=== PATIENT | female | born 1995 | race Caucasian/White ===

== ENCOUNTER 2020-01-01 16:25 | Emergency (ER) | payer OTHER, SELFPAY ==
--- NOTE | ~2020-01-01 | XR_ITS ---
XR ankle LT min 3V 01/01/2020 16:50 INDICATION: Left ankle pain PROCEDURE: 4 views left ankle COMPARISON: No prior studies for comparison. FINDINGS: Fracture, dislocation or subluxation is not identified. The soft tissues appear within norm al limits. No foreign bodies are identified. IMPRESSION: 1: NO ACUTE BONE OR JOINT ABNORMALITY IDENTIFIED. Reviewed, dictated and finalized at location A.
[2020-01-01 16:32] VITALS: BP 127/76; PULSE 91; RESP 18; TEMP 36.8; O2SAT 100
--- NOTE | 2020-01-01 16:39 | ED.GENADULT ---
HPI - General Adult General Chief complaint: Extremity Injury, Lower Stated complaint: left ankle pain/swelling Time Seen by Provider: 01/01/20 16:39 Source: patient and RN notes reviewed Mode of arrival: ambulatory Limitations: no limitations History of Present Illness HPI narrative: 24-year-old female presents with complains of tenderness and swelling to the left lateral ankle for the past 4-5 days. Tylenol (last at approximately at 13:30), Ibuprofen (last at approximately at 14:30), tomeka wrap, ice, and elevation with little relief. Injured ankle walking on uneven pavement. Swelling and pain increased over the past 24 hours. No radiating pain. No numbness or tingling or loss of mobility. Denies inability to bear weight. Exacerbation factor consist of movement and bearing weight. The relieving factor is immobility. Denies discoloration. Denies altered sensation, back pain, neck pain, and suspected foreign body. Denies being , LMP started on 12/27/19 and continues at this time. The patient reports she have not been diagnosed with COVID-19. The patient reports she is not waiting for the results of a COVID-19 lab test. The patient reports she do not have fever, chills, weakness, or fatigue. The patient reports she do not have a new or worsening cough or shortness of breath. Denies chest pain. The patient reports she do not have any rhinorrhea, sore throat, nausea, vomiting, abdominal pain, and diarrhea. Tolerating po intake well. Denies recent traveling. Denies concerns for COVID-19 or exposures been home with limited outdoor exposure except for essential household needs, work, and return home. At this time, patient is not suspected of having COVID-19. Some parts of this dictation were generated by voice recognition software and may contain typographical and/or grammatical inaccuracies. Related Data Home Medications Medication Instructions Recorded Confirmed No Home Medications 01/01/20 01/01/20 Allergies Allergy/AdvReac Type Severity Reaction Status Date / Time acetaminophen [From Vicodin] AdvReac Nausea and Verified 01/01/20 16:44 Vomiting hydrocodone [From Vicodin] AdvReac Nausea and Verified 01/01/20 16:44 Vomiting Review of Systems Review of Systems: Narrative: CONSTITUTIONAL: Denies fever, chills, sweats. EYES: Denies visual changes, redness, discharge. ENT: Denies rhinorrhea, congestion, sore throat, otalgia. CARDIOVASCULAR: Denies chest pain, palpitations, edema. RESPIRATORY: Denies dyspnea, wheezing, cough. GASTROINTESTINAL: Denies abdominal pain, nausea, vomiting, diarrhea. GENITOURINARY: Denies dysuria, hematuria, abnormal discharge. SKIN: Denies rash or itching. MUSCULOSKELETAL: Denies acute back pain or myalgia. Complains of LT lateral ankle swelling and pain. NEUROLOGIC: Denies numbness or focal weakness. PSYCHIATRIC: Denies anxiety or depression. All other systems reviewed & are unremarkable except as noted in HPI and below. [facility] Past Medical History Medical History (Updated 01/02/20 @ 00:00 by Celine Dasimone) Anxiety Depression Endometriosis Post traumatic stress disorder (PTSD) Surgical History Surgical History (Updated 01/01/20 @ 16:54 by DEYSI Almazan) History of bilateral salpingo-oophorectomy Hx of appendectomy Family History Family History (Updated 01/01/20 @ 16:54 by DEYSI Almazan) Father Depression Anxiety Mother Hypertension Social History Social History (Updated 01/01/20 @ 16:55 by DEYSI Almazan) Smoking packs per day: 0.25 Smoking cigarettes per day: 5.0 Years smoked: 10 Smoking pack-years: 2.50 Smoking status: Current every day smoker Tobacco type: cigarettes Second hand tobacco smoke exposure: Yes Alcohol intake: current Alcohol use details: Rarely Substance use: current Substance use type: marijuana Living arrangements: with family Occupation/Education: occupation Gen
--- NOTE | 2020-01-01 16:57 | PC.NURSE ---
PT DECLINED WHEELCHAIR TO RADIOLOGY
== END 2020-01-01 17:10 | disposition home or self-care (01) ==
PROVIDERS: Emergency Provider Nurse Practitioner Family
DX: S93.402A Sprain of unspecified ligament of left ankle, initial encounter (principal); X58.XXXA Exposure to other specified factors, initial encounter
CPT/HCPCS: 73610; 99213; G0463

== ENCOUNTER 2021-04-07 08:23 | Emergency (ER) | payer OTHER, SELFPAY ==
--- NOTE | 2021-04-07 08:28 | ED.URI ---
HPI - URI/Sore Throat General Chief Complaint: Upper Respiratory Infection Stated Complaint: Sore throat, cough Time Seen by Provider: 04/07/21 08:28 Source: patient and RN notes reviewed History of Present Illness HPI Narrative: Patient is a 26-year-old female who presents the urgent care with complaints of a sore throat and a cough. Patient states her sore throat started 2 days ago when she started coughing last night. Patient has been taking DayQuil, NyQuil and Tylenol. Patient states that she had a low-grade fever of 99. Denies of any nausea, vomiting, shortness of breath. Patient denies of any known exposure to strep or Covid. Patient has not had a Covid vaccine. No other acute complaints. No acute distress noted. Patient had a plan of care. Some parts of this dictation were generated by voice recognition software and may contain typographical and/or grammatical inaccuracies. Related Data Home Medications Medication Instructions Recorded Confirmed amitriptyline 25 mg PO DAILY 04/07/21 04/07/21 levonorgestrel [Mirena] 20 mcg INTRAUTERINE [id number] 04/07/21 04/07/21 Allergies Allergy/AdvReac Type Severity Reaction Status Date / Time codeine AdvReac Intermediate Nausea and Verified 04/07/21 08:39 Vomiting hydrocodone [From Vicodin] AdvReac Intermediate Nausea and Verified 04/07/21 08:38 Vomiting Review of Systems Review of Systems: CONSTITUTIONAL: Denies fever, chills, or sweats. EYES: Denies visual changes, redness, or discharge. ENT: Denies rhinorrhea, congestion, otalgia. Reports of sore throat CARDIOVASCULAR: Denies chest pain, palpitations, or edema. RESPIRATORY: Reports of cough without dyspnea GASTROINTESTINAL: Denies abdominal pain, nausea, vomiting, or diarrhea. GENITOURINARY: Denies dysuria or hematuria. SKIN: Denies rash or itching. MUSCULOSKELETAL: Denies back pain, joint pain, or myalgia. NEUROLOGIC: Denies headache, numbness, or weakness. All other systems reviewed are negative, except as documented in HPI. [facility] Past Medical History Medical History (Updated 04/07/21 @ 08:51 by DEYSI Toro) Anxiety Depression Endometriosis Post traumatic stress disorder (PTSD) Surgical History Surgical History (Updated 01/01/20 @ 16:54 by DEYSI Almazan) History of bilateral salpingo-oophorectomy Hx of appendectomy Family History Family History (Updated 01/01/20 @ 16:54 by DEYSI Almazan) Father Depression Anxiety Mother Hypertension Social History Social History (Updated 01/01/20 @ 16:55 by DEYSI Almazan) Smoking packs per day: 0.25 Smoking cigarettes per day: 5.0 Years smoked: 10 Smoking pack-years: 2.50 Smoking status: Current every day smoker Tobacco type: cigarettes Second hand tobacco smoke exposure: Yes Alcohol intake: current Alcohol use details: Rarely Substance use: current Substance use type: marijuana Gender identity (if verbalized by the patient): Female Sexual Orientation (if Verbalized by the Patient): Straight or Heterosexual Comments At the time of my signature, I reviewed and agree with the nursing past medical, surgical, social, and family history. There is no relevant family history pertinent to the patient complaint. Exam Narrative: GENERAL: This is a well-nourished, well-developed patient, in no apparent distress. HEAD: normocephalic, atraumatic. EYES: PERRL. Sclera clear/white. Vision is grossly intact. EARS: External ears normal, auditory canals clear and without drainage, TMs normal without perforation. Hearing grossly intact. NOSE: External nose normal with no obvious nasal discharge, nares without redness, clear rhinorrhea. THROAT: Mucous membranes moist, posterior pharynx clear. Moderate postnasal drainage NECK: Neck supple CARDIOVASCULAR: Regular rate and rhythm without murmurs, gallops, or rubs. RESPIRATORY: Clear to auscultation. Breath sounds equal bilaterally. No wheezes,
[2021-04-07 08:32] VITALS: BP 133/90; PULSE 94; RESP 16; TEMP 36.8; O2SAT 100
[2021-04-08 22:24] LABS: SARS-CoV-2 RNA PCR Negative
== END 2021-04-07 08:53 | disposition home or self-care (01) ==
PROVIDERS: Emergency Provider Nurse Practitioner Family
DX: J02.9 Acute pharyngitis, unspecified (principal); Z20.822 Contact with and (suspected) exposure to COVID-19; F17.210 Nicotine dependence, cigarettes, uncomplicated; N80.9 Endometriosis, unspecified; F32.A Depression, unspecified
CPT/HCPCS: 87081; 87147; 87880; 99213; C9803; G0463; U0003; U0005

== ENCOUNTER 2021-04-21 15:00 | Outpatient (RCR) | payer OTHER, SELFPAY ==
--- NOTE | 2021-03-11 11:31 | PTOPEVAL ---
INITIAL PHYSICAL THERAPY EVALUATION and PLAN OF CARE Thank you for referring Kaya Burch to [facility].? Kaya is scheduled to be seen for physical therapy? 2x/week for 2 weeks, 1x/week x 4 weeks. Please review, sign, date and return this plan of care BRAIN. I agree with and certify that the following plan of care is medically necessary. Referring Physician Date Admitting Provider: Attending Provider: Caroline Abreu, MARKETING DEVELOPMENT MANAGER Referring Provider: *PT Outpatient Evaluation Start: 03/11/21 10:04 Freq: Status: Active Protocol: Document 03/11/21 10:00 ASHLY (Rec: 03/11/21 11:30 ASHLY [id number]) Therapy Assessment Status Assessment Status Assessment Status Evaluation Outpatient Past Medical History Past Medical History Source of Past Medical History Recalled from Previous Visit, Confirmed with Patient/Family Cardiovascular History Hx Other Cardiac Disorders Yes: tricuspid valve malformation Gastrointestinal History Hx Appendectomy Yes Hx Irritable Bowel Yes Genitourinary History Hx Other Genitourinary Disorders Yes: painful bladder syndrome, cystitis Musculoskeletal History Hx Back Pain Yes: since of last child Reproductive History Hx Endometriosis Yes: related surgery, including fallopian tubes removed Hx Other Reproductive Disorders Yes: R ovarian cyst that MD is monitoring Evaluation Information Problem Diagnosis interstitial cystitis (chronic ) without hematuria Onset couple of years Subjective Information Was diagnosed with Query Text:As Reported By Patient/ endometriosis ~ 2 years ago - Family had surgery including Fallopian tubes removal - helped for a month or 2. Has tried various medications - nothing seems to have helped. Constant abdominal discomfort . 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 Lately - symptoms have become worse - used to wake up okay - pain would come on as day went on. Now - waking up with the discomfort. At times
--- NOTE | 2021-03-25 09:40 | PCPTNOTE ---
Patient called & cancelled scheduled appointment this date due to [got times mixed up for appt . per secretary book keeper. ]
--- NOTE | 2021-04-06 09:08 | PCPTNOTE ---
Pt called and cancelled per company secretary; child is ill.
--- NOTE | 2021-04-21 16:13 | PTOPEVAL ---
PHYSICAL THERAPY DISCHARGE SUMMARY Thank you for referring Kaya Burch to [facility].? Kaya was seen x 7 visits. She progressed well in PT - she has changed her diet and drinking more water, decrease with pelvic floor tissue tension and discomfort and decreased lower abdominal discomfort. She is ready for d/c from PT. I agree with Kaya's discharge from PT. Referring Physician Date Admitting Provider: Attending Provider: Caroline Abreu, TRAILER ASSEMBLER Referring Provider: Therapy Assessment Status Assessment Status Assessment Status Discharge Evaluation Information Problem Diagnosis interstitial cystitis (chronic ) without hematuria Subjective Information Kaya reported that she Query Text:As Reported By Patient/ worked a shift today - no Family abdominal discomfort. She has noticed over the last month less discomfort. [place] - doesn't know - did break up with boyfriend. Pain Assessment Timing of Pain Assessment Timing of Pain Assessment Assessment Pain Scale Pain Scale Used Numeric (1 - 10) Self Report Pain Assessment Lower Abdomen Reported Pain Level 0 Lowest Pain Intensity 0 Greatest Pain Intensity 5 Pelvic Health Evaluation Pelvic Floor Assessment Permission Received for External/ Yes Internal Perineal Exam Internal Perineal Body Palpation no tenderness at introitus, good levator ani soft tissue mobility, some tenderness at 11-1 o'clock region - mild tightness - increased relaxation with soft tissue mobilization - no tenderness afterwards Additional Comments lower abdominal region - good tissue mobility, no discomfort present PT Clinical Summary Clinical Summary Protocol: PTEVCODE PT Clinical Summary Pelvic Floor Impact Questionnaire - bladder or urine - 07/26 vagina or pelvis - 09/23 Kaya has done well in PT in regards to reduction of lower abdominal and pelvic floor tissue tension and discomfort. She has changed her diet - avoiding carbonation, caffeine and had increased water intake. Marked reduction in lower abdominal discomfort.
== END 2021-05-24 14:00 | disposition home or self-care (01) ==
LOC: ANHHIPT 15:00
PROVIDERS: Visit Provider Nurse Practitioner Obstetrics & Gynecology
DX: N30.10 Interstitial cystitis (chronic) without hematuria (principal)
CPT/HCPCS: 97014; 97110; 97140; 97162; G0283

== ENCOUNTER 2021-10-14 12:45 | Outpatient (CLI) | payer OTHER, SELFPAY ==
--- NOTE | ~2021-10-14 | DEXA_ITS ---
Bone Density Report Name: LEANDER FRANKLIN Age: 26 Sex: Female Ethnicity: White Date of : 1995 Indication: inflammatory bowel disease; Referring Provider: MIRELA, ASHISH Baxter Study: Bone densitometry was performed. Exam Date: October 14, 2021 Accession number: [id number] Bone Density: Region BMD T-score Z-score Classification AP Spine(L1-L4) 1.034 -0.1 Femoral Neck (Left) 0.856 0.1 Total Hip (Left) 0.973 0.3 Femoral Neck (Right) 0.898 0.5 Total Hip (Right) 0.987 0.4 Total Hip Mean 0.980 0.4 World Health Organization criteria for BMD impression classify patients as: Normal (T-score at or above -1.0), Osteopenia (T-score between -1.0 and -2.5), or Osteoporosis (T-score at or below -2.5). 10-year Fracture Risk: FRAX not reported because: Premenopausal woman Clinical Information Provided by Patient: Has the following medical conditions: Inflammatory bowel diseases Patient maximum height was 68 Onset of menses at age 12 Premenopausal Number of children 3 Impression: The patient's bone mass is within expected range for age, gender and ethnicity. Discussion: BONE DENSITY IS WITHIN EXPECTED LIMITS FOR AGE, SEX AND RACE. Bone density is within expected limits for age, sex and race at all sites measured. The patient should follow a healthful lifestyle (good nutrition with adequate calcium and vitamin D, and appropriate weight-bearing exercise). Follow-Up: Consider repeating this study in 5 years or sooner if there is some new clinical indication. Reported by: MARISELA on 10/14/2021 1:16:00 PM. Reviewed, dictated and finalized at location Alejandro GARCIA
== END 2021-10-14 12:46 | disposition home or self-care (01) ==
PROVIDERS: Visit Provider Nurse Practitioner Obstetrics & Gynecology
DX: R94.7 Abnormal results of other endocrine function studies (principal)
CPT/HCPCS: 77080

== ENCOUNTER 2021-10-18 00:51 | Day surgery (SDC) | payer OTHER, SELFPAY ==
[2021-10-12 13:51] VITALS: BMI 24.9
[2021-10-18 12:06] VITALS: BMI 24.1
[2021-10-18] MEDS: LACTATED RINGERS 1,000 ML 150 ML IV CONT (12:24)
--- NOTE | 2021-10-18 12:47 | P.PNAN_ITS ---
Anes - Initial Pre Proc Eval Procedure: Operation Date: 10/18/21 13:15 Proposed Procedures p Esophagogastroduodenoscopy & Colonoscopy - Tigre Erickson MD Date/Time: 10/18/21 12:47 Surgeon: Tigre Erickson MD Pre Op Diagnosis: nausea, change in bowel habits Patient Data Age: 26 Gender: F Height: 1.75 m Weight: 74.2 kg Allergies Allergy/AdvReac Type Severity Reaction Status Date / Time codeine AdvReac Severe Nausea and Verified 10/18/21 12:05 Vomiting hydrocodone [From Vicodin] AdvReac Severe Nausea and Verified 10/18/21 12:05 Vomiting Home Medications Medication Instructions Recorded Confirmed Type levonorgestrel [Mirena] 20 mcg INTRAUTERINE DIRECTED 04/07/21 10/12/21 History elagolix 150 mg tablet 150 mg PO DAILY 09/21/21 10/12/21 History estradiol 1 mg tablet 1 mg PO DAILY PRN 09/21/21 10/12/21 History Adult Probiotic 1 cap PO DAILY 10/12/21 10/12/21 History linaclotide [Linzess] 72 mcg PO DAILY PRN 10/12/21 10/12/21 History Patient hx anesthesia problems: none Family hx anesthesia problems: none Results Review: All pre-operative results and documents have been reviewed as part of the pre-operative evaluation. [facility] Past Medical History Medical History (Updated 09/21/21 @ 12:13 by BRITNEY Chaves) Anxiety Depression Endometriosis Nausea Post traumatic stress disorder (PTSD) Surgical History Surgical History History of bilateral salpingo-oophorectomy Hx of appendectomy Family History Family History Father Depression Anxiety Mother Hypertension Social History Social History Smoking packs per day: 0.5 Smoking cigarettes per day: 10.0 Years smoked: 10 Smoking pack-years: 5.00 Smoking status: Former smoker Tobacco type: cigarettes and e-cigarettes/vaping Second hand tobacco smoke exposure: Yes Additional smoking assessment comments: CURRENTLY VAPES Alcohol intake: current Alcohol use details: Rarely Substance use: current Substance use type: marijuana Other substance usage details: SMOKES COUPLE TIMES A DAY Living arrangements: with family Gender identity (if verbalized by the patient): Female Sexual Orientation (if Verbalized by the Patient): Straight or Heterosexual Spiritual care concerns: No Anes - Eval Final PreProcedure Day of Procedure 10/18/21 12:47 Patient weight: normal Heart: regular rate and rhythm Lungs: clear to auscultation Airway: Mallampati scale class II Neurological: alert and oriented Last oral intake: >/= 8 hours ASA classification: II Emergent: no Anesthetic plan: proceed Anesthesia type and monitoring: general GIVS and standard monitoring Results Review: All pre-operative results and documents have been reviewed as part of the pre-operative evaluation. Informed Consent: The patient's anesthetic plan and its attendant risks and benefits were discussed with the patient/family/POA. Questions were solicited and answers provided to the satisfaction of the patient/family/POA.
--- NOTE | 2021-10-18 13:02 | WPDHPUPDATE1 ---
History and Physical Update Update Date/Time: 10/18/21 13:02 History and Physical has been reviewed, including an updated exam of the patient. There are NO changes in the patient's condition. Risks, benefits, and alternatives have been discussed and questions answered. Patient agrees to proceed with procedure.
[2021-10-18 13:32] VITALS: BP 96/58; PULSE 47; RESP 19; O2SAT 99
[2021-10-18 13:42] VITALS: BP 105/67; PULSE 40; RESP 11; O2SAT 100
--- NOTE | 2021-10-18 13:46 | SUR.PHASEII ---
Dr. Mariscal made aware of pt's bradycardia (HR low 40's). No new orders at this time.
[2021-10-18 13:52] VITALS: BP 115/75; PULSE 65; RESP 17; O2SAT 100
== END 2021-10-18 14:10 | disposition home or self-care (01) ==
PROVIDERS: Visit Provider Internal Medicine Gastroenterology
PROC: 0DJ08ZZ Inspection of Upper Intestinal Tract, Via Natural or Artificial Opening Endoscopic (ICD-10-PCS; CPT 43235; principal; 2021-10-18 13:15)
DX: K58.9 Irritable bowel syndrome, unspecified (principal); K64.8 Other hemorrhoids; K44.9 Diaphragmatic hernia without obstruction or gangrene; K29.70 Gastritis, unspecified, without bleeding; N80.9 Endometriosis, unspecified; F17.290 Nicotine dependence, other tobacco product, uncomplicated; F12.90 Cannabis use, unspecified, uncomplicated
CPT/HCPCS: 45380; 43239; 87081; 88305; J2704; J7120

== ENCOUNTER 2022-05-11 15:43 | Emergency (ER) | payer OTHER, SELFPAY ==
[2022-05-11 15:48] VITALS: BP 125/77; PULSE 87; RESP 18; TEMP 37.4; O2SAT 100
--- NOTE | 2022-05-11 18:50 | ED.URI ---
HPI - URI/Sore Throat General Chief Complaint: Upper Respiratory Infection Stated Complaint: fever aches fatigue Time Seen by Provider: 05/11/22 18:50 Source: patient, RN notes reviewed and old records reviewed Mode of arrival: ambulatory Limitations: no limitations History of Present Illness HPI Narrative: 27 year old female who presents to [facility] care with complaints of scratchy throat,fevers, chills, sweats, cough, head congestion, and body aches for the past 3 days. Patient reports that she has taken DayQuil,NyQuil severe cold flu medication and Tylenol for her symptoms. Patient reports that she has not had COVID vaccinations or flu shot.Patient states that she also has had some nausea with vomiting. MD elicited complaint: cough and sore throat Onset (ago): day(s) (3) Pain scale (0-10): 5 Treatments prior to arrival: acetaminophen and other (DayQuil NyQuil, severe cold flu mediaiton) Related Data Home Medications Medication Instructions Recorded Confirmed Adult Probiotic 1 cap PO DAILY 10/12/21 05/11/22 norethindrone (contraceptive) 0.35 0.35 mg PO DAILY 05/11/22 05/11/22 mg tablet (Angélica) Allergies Allergy/AdvReac Type Severity Reaction Status Date / Time codeine AdvReac Severe Nausea and Verified 05/11/22 17:55 Vomiting hydrocodone [From Vicodin] AdvReac Severe Nausea and Verified 05/11/22 17:55 Vomiting Review of Systems Review of Systems: CONSTITUTIONAL: Reports malaise, chills, sweats, or fever. EYES: Denies visual changes, redness, or discharge. ENT: Reports rhinorrhea, congestion, sinus pain,no otalgia scratchy sore throat. CARDIOVASCULAR: Denies chest pain, palpitations, or edema. RESPIRATORY: Reports cough.? Denies dyspnea. GASTROINTESTINAL: Denies abdominal pain,positive for nausea, vomiting,no diarrhea SKIN: Denies rash or itching. MUSCULOSKELETAL: Reports myalgia. NEUROLOGIC: Reports headache. All systems reviewed & are unremarkable except as noted in HPI and below PMFSH Past Medical History Medical History Anxiety Depression Endometriosis GERD (gastroesophageal reflux disease) Irritable bowel syndrome with constipation Nausea Post traumatic stress disorder (PTSD) Surgical History Surgical History History of bilateral salpingo-oophorectomy Hx of appendectomy Family History Family History Father Depression Anxiety Mother Hypertension Social History Social History Smoking packs per day: 0.5 Smoking cigarettes per day: 10.0 Years smoked: 10 Smoking pack-years: 5.00 Smoking status: Former smoker Tobacco type: cigarettes and e-cigarettes/vaping Second hand tobacco smoke exposure: Yes Additional smoking assessment comments: CURRENTLY VAPES Alcohol intake: current Alcohol use details: Rarely Substance use: current Substance use type: marijuana Other substance usage details: SMOKES COUPLE TIMES A DAY Gender identity (if verbalized by the patient): Female Sexual Orientation (if Verbalized by the Patient): Straight or Heterosexual Spiritual care concerns: No Comments At time of signature, agree with nursing past medical, surgical, social and family history. There is no relevant family history pertinent to the presenting complaint Exam Narrative: GENERAL: Well-appearing, well-nourished, and in no acute distress. HEAD: Normocephalic EYES: PERRLA, conjunctivae clear ENT: Nares clear, turbinates edematous and erythematous, clear discharge. Mucous membranes moist. TM pearly [place] with dull light reflex bilaterally; no tragal tenderness. Oropharynx erythematous without lesions. Tonsils not enlarged and without exudate, no drooling, no hoarseness, no trismus, uvula midline.post nasal drainage. NECK: Supple. N
== END 2022-05-11 19:20 | disposition home or self-care (01) ==
PROVIDERS: Emergency Provider Registered Nurse
DX: B34.9 Viral infection, unspecified (principal); Z20.822 Contact with and (suspected) exposure to COVID-19; F17.290 Nicotine dependence, other tobacco product, uncomplicated; N80.9 Endometriosis, unspecified; K21.9 Gastro-esophageal reflux disease without esophagitis
CPT/HCPCS: 87426; 87804; 99213; C9803; G0463

== ENCOUNTER 2023-07-14 08:59 | Emergency (ER) | payer OTHER, SELFPAY ==
--- NOTE | 2023-07-14 09:07 | ED.URI ---
HPI - URI/Sore Throat General Chief Complaint: Upper Respiratory Infection Stated Complaint: Diarrhea/Cough/Light Headed Source: patient and RN notes reviewed Mode of arrival: ambulatory Limitations: no limitations History of Present Illness HPI Narrative: 28 y/o female presented for c/o cough, nasal congestion, lightheadedness, sore throat, and diarrhea for about 2 days. Denies sob, wheezing, lethargy or fever. Taking Dayquil, Nyquil and mucinex. MD elicited complaint: cough Related Data Home Medications Medication Instructions Recorded Confirmed Adult Probiotic 1 cap PO DAILY 10/12/21 05/11/22 norethindrone (contraceptive) 0.35 0.35 mg PO DAILY 05/11/22 05/11/22 mg tablet (Angélica) Allergies Allergy/AdvReac Type Severity Reaction Status Date / Time codeine AdvReac Severe Nausea and Verified 05/11/22 17:55 Vomiting hydrocodone [From Vicodin] AdvReac Severe Nausea and Verified 05/11/22 17:55 Vomiting Review of Systems Review of Systems: CONSTITUTIONAL: Endorses malaise, denies chills, sweats, fever EYES: Denies visual changes, redness, or discharge ENT: Reports rhinorrhea, congestion, sinus pain, otalgia, sore throat CARDIOVASCULAR: Denies chest pain, palpitations, edema RESPIRATORY: Reports cough, post nasal drainage. Denies dyspnea GASTROINTESTINAL: Denies abdominal pain, nausea, vomiting, reports diarrhea SKIN: Denies rash or itching MUSCULOSKELETAL: denies myalgia PMFSH Past Medical History Medical History Anxiety Depression Endometriosis GERD (gastroesophageal reflux disease) Irritable bowel syndrome with constipation Nausea Post traumatic stress disorder (PTSD) Surgical History Surgical History History of bilateral salpingo-oophorectomy Hx of appendectomy Family History Family History Father Depression Anxiety Mother Hypertension Social History Social History Smoking packs per day: 0.5 Smoking cigarettes per day: 10.0 Years smoked: 10 Smoking pack-years: 5.00 Smoking status: Former smoker Tobacco type: cigarettes and e-cigarettes/vaping Second hand tobacco smoke exposure: Yes Additional smoking assessment comments: CURRENTLY VAPES Alcohol intake: current Alcohol use details: Rarely Substance use: current Substance use type: marijuana Other substance usage details: SMOKES COUPLE TIMES A DAY Living arrangements: with family Occupation/Education: occupation Gender identity (if verbalized by the patient): Female Sexual Orientation (if Verbalized by the Patient): Straight or Heterosexual Spiritual care concerns: No Exam Narrative: GENERAL: mildly Ill-appearing, nontoxic no acute distress. EYES: PERRLA, conjunctivae clear ENT: Mucous membranes moist. Nasal congestion. TMs pearly [place] with dull light reflex bilaterally; no tragal tenderness. Oropharynx erythematous without lesions or exudate, no drooling, no hoarseness, no trismus, uvula midline. No tripod positioning, muffled voice, soft palate or pharyngeal wall bulging NECK: Supple. No lymphadenopathy CHEST: Clear to auscultation, breath sounds equal. No wheezing, rhonchi, rales, or stridor. No respiratory distress, speaks in full sentences. HEART: Regular rate and rhythm. No murmur heard. SKIN: Warm, dry, no rash. NEURO: Alert and oriented x3. PSYCH: Normal mood and affect Course Course Emergency Course: Patient is aware of diagnosis, understands and agrees to treatment plan. Anticipatory guidance given. Patient agrees to follow-up as directed and is aware of reasons to seek care at the emergency department. Portions of this record may have been created with voice recognition software Level of Care: Express Care Visit Vital Signs Vital signs: Kasia
[2023-07-14 09:20] VITALS: BP 147/92; PULSE 84; RESP 20; TEMP 36.7; O2SAT 100
== END 2023-07-14 09:51 | disposition home or self-care (01) ==
PROVIDERS: Emergency Provider Nurse Practitioner Family
DX: B34.9 Viral infection, unspecified (principal); Z20.822 Contact with and (suspected) exposure to COVID-19; F17.290 Nicotine dependence, other tobacco product, uncomplicated; N80.9 Endometriosis, unspecified; K21.9 Gastro-esophageal reflux disease without esophagitis
CPT/HCPCS: 87426; 87804; 99213; G0463

== ENCOUNTER 2024-01-17 00:49 | Day surgery (SDC) | payer OTHER, MEDICAID, SELFPAY ==
[2024-01-10 15:09] VITALS: BMI 25.9
--- NOTE | 2024-01-10 15:23 | PC.NURSE ---
Report to the Outpatient Waiting Room, entrance under the green pavilion located off [facility], at 1000 on 01/17/24. Planned Procedure Time: 1200. Time changes happen often and if your time is changed the preop area will call you the afternoon before. - You and your visitor will be asked to self-screen and do not enter if you have any COVID symptoms. - A mask is optional within the hospital at this time. Patients may have clear liquids (water, carbonated beverages, clear teas, apple juice) until 3 hours prior to surgery with a maximum of 20 ounces. - No food from midnight until time of surgery Take the following medications with a SIP of water the morning of surgery: DO NOT STOP ANY OF YOUR OTHER PRESCRIPTION MEDICATIONS PRIOR TO SURGERY ?EXCEPT THE FOLLOWING Medications to discontinue per physician probiotic Date to take last dose 3 days prior Please no make-up, nail yoruba, hairspray, perfume, deodorant, or body powder the day of surgery. No jewelry (including any body piercings) or valuables the day of surgery, leave them at home. Please take a shower or bath the night before, or the morning of, surgery with an antibacterial soap. Wear comfortable, loose fitting clothing. - Jewelry must be removed prior to entering the operating room. Rings and piercings that are not removed may be cut off. - The hospital will not accept responsibility for valuables. - Please leave all valuables, including medications, at home the day of surgery. If you are going home after surgery, a licensed [employer] flatbed driver must drive you home. - NO public transportation without another adult if you receive anesthesia. - We recommend that an adult stay with you for 24 hours following discharge. - We also recommend that you do not drive, make important decision, drink alcoholic beverages, or take any drugs that were not prescribed by your health care provider for at least 24 hours after your discharge time. Follow any additional instructions given to you from your surgeon. If you or anyone in your household have experienced Covid symptoms in the past week, please notify your surgeon or the nurse liaison at the phone number below for possible testing. Telephone instructions given to patient and asked if any additional questions and then verbalized understanding. Patient advised to call surgeon office or pre surgery nurse liaison [phone] if any additional questions.
[2024-01-17] VITALS (9 sets, daily range): BP systolic 108–141; BP diastolic 65–97; PULSE 45–70; RESP 13–22; TEMP 36.6; O2SAT 98–100; BMI 26.9
[2024-01-17] MEDS: KETOROLAC 15 MG/ML VIAL (*BKC) IV PUSH (09:54)
[2024-01-17] MEDS: LACTATED RINGERS 1,000 ML 30 ML IV CONT ×2 (09:54→13:58)
[2024-01-17] MEDS: ACETAMINOPHEN 500 MG TABLET 1000 MG PO (09:54)
[2024-01-17 10:04] LABS: BEDSIDEPREGUCG Negative
--- NOTE | 2024-01-17 12:06 | WPDHPUPDATE1 ---
History and Physical Update Update Date/Time: 01/17/24 12:06 History and Physical has been reviewed, including an updated exam of the patient. There are NO changes in the patient's condition. Risks, benefits, and alternatives have been discussed and questions answered. Patient agrees to proceed with procedure.
--- NOTE | 2024-01-17 12:48 | WPDANESEPPF ---
Anes - Initial Pre Proc Eval Procedure: Operation Date: 01/17/24 11:30 Proposed Procedures p Diagnostic Laparoscopy - Yoel Gramajo MD Date/Time: 01/17/24 12:48 Surgeon: Yoel Gramajo MD Pre Op Diagnosis: pelvic pain Patient Data Age: 28 Gender: F Height: 1.75 m Weight: 82.55 kg Last Vital Signs Temp 97.9 F 01/17/24 09:59 Pulse 62 01/17/24 09:59 Resp 16 01/17/24 09:59 BP 108/78 01/17/24 09:59 Pulse Ox 100 01/17/24 09:59 O2 Del Method Room Air 01/17/24 09:59 Allergies Allergy/AdvReac Type Severity Reaction Status Date / Time codeine AdvReac Severe Nausea and Verified 01/17/24 09:58 Vomiting hydrocodone [From Vicodin] AdvReac Severe Nausea and Verified 01/17/24 09:58 Vomiting Home Medications Medication Instructions Recorded Confirmed Type Adult Probiotic 1 cap PO DAILY 10/12/21 01/17/24 History desvenlafaxine succinate 50 mg 1 mg PO HS 01/10/24 01/17/24 History tablet,extended release 24 hr Laboratory Tests 01/17/24 09:59 POC Urine HCG, Qual Negative POC Ur Preg QC Yes Patient hx anesthesia problems: none Family hx anesthesia problems: none Results Review: All pre-operative results and documents have been reviewed as part of the pre-operative evaluation. [facility] Past Medical History Medical History Anxiety Depression Endometriosis GERD (gastroesophageal reflux disease) Irritable bowel syndrome with constipation Nausea Post traumatic stress disorder (PTSD) Surgical History Surgical History History of bilateral salpingo-oophorectomy Hx of appendectomy Family History Family History Father Depression Anxiety Mother Hypertension Social History Social History Smoking packs per day: 0.5 Smoking cigarettes per day: 10.0 Years smoked: 10 Smoking pack-years: 5.00 Smoking status: Former smoker Tobacco type: e-cigarettes/vaping Second hand tobacco smoke exposure: Yes Additional smoking assessment comments: daily vaping Alcohol intake: current Alcohol use details: 1 drink/month Substance use: current Substance use type: marijuana Other substance usage details: at bedtime daily Living arrangements: with family Occupation/Education: occupation Gender identity (if verbalized by the patient): Female Sexual Orientation (if Verbalized by the Patient): Straight or Heterosexual Spiritual care concerns: No Anes - Eval Final PreProcedure Day of Procedure 01/17/24 12:48 Patient weight: normal Heart: regular rate and rhythm Lungs: clear to auscultation Airway: Mallampati scale class II Neurological: alert and oriented Last oral intake: >/= 8 hours ASA classification: II Emergent: no Anesthetic plan: proceed Anesthesia type and monitoring: general ETT and standard monitoring Results Review: All pre-operative results and documents have been reviewed as part of the pre-operative evaluation. Informed Consent: The patient's anesthetic plan and its attendant risks and benefits were discussed with the patient/family/POA. Questions were solicited and answers provided to the satisfaction of the patient/family/POA.
--- NOTE | 2024-01-17 13:48 | W.PM.PROC2 ---
Procedure Note - Detailed Date of Procedure 01/17/24 Pre-op Diagnosis pelvic pain, dyspareunia Post-op Diagnosis Same ( pelvic congestion syndrome) Procedure Performed Diagnostic laparoscopy Surgeon Yoel Gramajo MD Anesthesia General Indications Pelvic pain Findings dilated parametrial veins and pelvic sidewall veins, endometriosis this present in small lesions -2 on the ovary, 2 in the parametrium on the posterior cervix. Description of Procedure The patient was taken to the operating room. She was prepped and draped in the dorsal lithotomy position after induction general anesthesia. A 5 mm incision was made with a scalpel on the abdominal skin in the left upper quadrant of the abdomen. A 5 mm trocar was inserted into the intra-abdominal cavity under direct visualization the scope. In the same fashion a 5 mm left lower quadrant trocar was inserted and a 5 mm infraumbilical trocar was inserted. Multiple areas were fulgurated with cautery, unipolar cautery from the [place] instrument. Two of the ovary into in the posterior cul-de-sac The pelvis was irrigated. The pneumoperitoneum was reduced. The trocars were removed. Skin was closed with subcuticular 4 micro. The patient's incisions were covered with Dermabond. She was taken recovery room in stable condition. Sponge lap and needle counts were correct x2. Complications No immediate complications Condition Stable Disposition Same day
[2024-01-17] MEDS: GLYCOPYRROLATE INJ (*SP) 0.2 MG/ML VIAL IV PUSH (14:25)
[2024-01-17] MEDS: oxyCODONE HCL (*CRX) 5 MG TAB IR PO (15:39)
== END 2024-01-17 16:15 | disposition home or self-care (01) ==
PROVIDERS: Visit Provider Obstetrics & Gynecology
PROC: (CPT 49320; principal; 2024-01-17 11:30)
DX: N80.109 Endometriosis of ovary, unspecified side, unspecified depth (principal); N80.00 Endometriosis of the uterus, unspecified; N80.329 Endometriosis of the posterior cul-de-sac, unspecified depth; N94.89 Other specified conditions associated with female genital organs and menstrual cycle; F41.9 Anxiety disorder, unspecified; F32.A Depression, unspecified; F43.10 Post-traumatic stress disorder, unspecified; F17.290 Nicotine dependence, other tobacco product, uncomplicated; F12.90 Cannabis use, unspecified, uncomplicated
CPT/HCPCS: 58662; A9270; J1100; J1596; J1885; J2250; J2704; J2710; J3010; J7030; J7120

== ENCOUNTER 2024-02-26 14:07 | Outpatient (CLI) | payer OTHER, MEDICAID, SELFPAY | END 2024-02-26 14:08 | disposition home or self-care (01) | LOC: ANHSURGERY 14:13 | PROVIDERS: Visit Provider Obstetrics & Gynecology | DX: Z01.818 Encounter for other preprocedural examination (principal); N80.9 Endometriosis, unspecified | CPT/HCPCS: 36415; 86850; 86900; 86901 ==

== ENCOUNTER 2024-02-28 01:58 | Day surgery (SDC) | payer OTHER, MEDICAID, SELFPAY ==
[2024-02-22 10:02] VITALS: BMI 26.5
--- NOTE | 2024-02-22 10:11 | SUR.PREOP ---
Report to the Outpatient Waiting Room, entrance under the green pavilion located off [facility], at time 6:00a.m. on date 02/28/2024. Planned Procedure Time: 7:30a.m.? Time changes happen often and if your time is changed the preop area will call you the afternoon before. - You and your visitor will be asked to self-screen and do not enter if you have any COVID symptoms. Please call surgeon if you need to reschedule. - A mask is optional within the hospital at this time. Patients may have clear liquids (water, carbonated beverages, clear teas, apple juice) until 3 hours prior to surgery with a maximum of 20 ounces. - No food from midnight until time of surgery and no smoking - Infants may have breast milk until 4 hours before surgery, infant formula 6 hours prior to surgery. - Children will be allowed to drink immediately following surgery.? If applicable, please bring a bottle or sippy cup to assist with drinking. Juice, water, soda, and popsicles are readily available.? For infants on formula, please bring formula the day of surgery.? Pacifiers are allowed. Take only the following medications with a SIP of water on the morning of surgery: desvenlafaxine DO NOT STOP ANY OF YOUR OTHER PRESCRIPTION MEDICATIONS PRIOR TO SURGERY EXCEPT THE FOLLOWING Medications to discontinue per physician N/A Date to take last dose N/A Please no make-up, nail arabic, hairspray, perfume, deodorant, or body powder the day of surgery.? No jewelry (including any body piercings) or valuables the day of surgery, leave them at home.? Please take a shower or bath the night before, or the morning of, surgery with an antibacterial soap.? Wear comfortable, loose fitting clothing.? Children are encouraged to wear pajamas. - Jewelry must be removed prior to entering the operating room.? Rings and piercings that are not removed may be cut off. - The hospital will not accept responsibility for valuables.? - Please leave all valuables, including medications, at home the day of surgery. If you are going home after surgery, a licensed crew car driver must drive you home.? - NO public transportation without another adult if you receive anesthesia. - We recommend that an adult stay with you for 24 hours following discharge. - We also recommend that you do not drive, make important decision, drink alcoholic beverages, or take any drugs that were not prescribed by your health care provider for at least 24 hours after your discharge time. For Pediatric surgeries, we recommend two adults accompany the child home. Follow any additional instructions given to you from your surgeon. Telephone instructions given to Kaya Burch and asked if any additional questions and then verbalized understanding. Patient advised to call surgeon office or pre surgery nurse liaison [phone] if any additional questions.
[2024-02-28] VITALS (11 sets, daily range): BP systolic 104–158; BP diastolic 68–93; PULSE 44–77; RESP 14–20; TEMP 36.3–36.9; O2SAT 96–100; BMI 27.7
--- NOTE | ~2024-02-28 | XR_ITS ---
EXAMINATION: XR retrograde pyelo w/stent BI DATE: 02/28/2024 08:23 INDICATION: Bilateral retrograde ureteral stent placement for planned abdominal surgery TECHNIQUE: 9 fluoroscopic images of the abdomen and pelvis were obtained during procedure performed b milan James. Radiologist was not present for the imaging or procedure. The amount of fluoroscopy time used during this procedure was 0.3 minutes. COMPARISON: None. FINDINGS: Images demonstrate retrograde catheter placement in the bilateral ureters with proximal tip s occluded near the ureteropelvic junctions as indicated by the retrograde injected contrast opacifyi ng the unremarkable bilateral renal collecting systems. IMPRESSION: 1. Fluoroscopy utilized during bilateral ureteral stent placement. See procedure note for further det ail. Reviewed, dictated and finalized at location A. IMPRESSION: 1. Fluoroscopy utilized during bilateral ureteral stent placement. See procedur e note for further detail.
[2024-02-28] MEDS: LACTATED RINGERS 1,000 ML 30 ML IV CONT ×2 (06:51→09:51)
[2024-02-28] MEDS: ACETAMINOPHEN 500 MG TABLET 1000 MG PO (06:52)
[2024-02-28] MEDS: KETOROLAC 15 MG/ML VIAL (*BKC) IV PUSH (06:52)
--- NOTE | 2024-02-28 07:04 | WPDANESEPPF ---
Anes - Initial Pre Proc Eval Procedure: Operation Date: 02/28/24 07:30 Proposed Procedures p Total Laparoscopic Hysterectomy with Bilateral Salpingectomy - Yoel Gramajo MD s Bilateral Stent Placement for Abdominal Surgery - Reyna James MD Date/Time: 02/28/24 07:04 Surgeon: Yoel Gramajo MD Pre Op Diagnosis: pelvic congestion syndrome Patient Data Age: 29 Gender: F Height: 1.75 m Weight: 85.3 kg Last Vital Signs Temp 97.6 F 02/28/24 06:48 Pulse 65 02/28/24 06:48 BP 104/68 02/28/24 06:48 Pulse Ox 100 02/28/24 06:48 O2 Del Method Room Air 02/28/24 06:48 Allergies Allergy/AdvReac Type Severity Reaction Status Date / Time codeine AdvReac Severe Nausea and Verified 02/28/24 06:46 Vomiting hydrocodone [From Vicodin] AdvReac Severe Nausea and Verified 02/28/24 06:46 Vomiting Home Medications Medication Instructions Recorded Confirmed Type desvenlafaxine succinate 50 mg 1 mg PO HS 01/10/24 02/22/24 History tablet,extended release 24 hr Patient hx anesthesia problems: none Family hx anesthesia problems: none Results Review: All pre-operative results and documents have been reviewed as part of the pre-operative evaluation. [facility] Past Medical History Medical History Anxiety Depression Endometriosis GERD (gastroesophageal reflux disease) Irritable bowel syndrome with constipation Nausea Post traumatic stress disorder (PTSD) Surgical History Surgical History History of bilateral salpingo-oophorectomy Hx of appendectomy Family History Family History Father Depression Anxiety Mother Hypertension Social History Social History Smoking packs per day: 0.5 Smoking cigarettes per day: 10.0 Years smoked: 10 Smoking pack-years: 5.00 Smoking status: Current every day smoker Tobacco type: e-cigarettes/vaping Second hand tobacco smoke exposure: Yes Additional smoking assessment comments: daily vaping Alcohol intake: current Alcohol use details: 1 drink/month Substance use: current Substance use type: marijuana Other substance usage details: Daily user Living arrangements: with family Occupation/Education: occupation Gender identity (if verbalized by the patient): Female Sexual Orientation (if Verbalized by the Patient): Straight or Heterosexual Spiritual care concerns: No Anes - Eval Final PreProcedure Day of Procedure 02/28/24 07:04 Patient weight: overweight Heart: regular rate and rhythm Lungs: clear to auscultation Airway: Mallampati scale and special considerations (Edentulous on upper aspect. ) Neurological: alert and oriented Last oral intake: >/= 8 hours ASA classification: II Emergent: no Anesthetic plan: proceed Anesthesia type and monitoring: general ETT Results Review: All pre-operative results and documents have been reviewed as part of the pre-operative evaluation. Pt vapes daily, did so today at 430 am. Pt has a congenital bicuspid aortic valve noted during prev post op hospitalization. She has no effects from it and gets it rechecked every couple of years. She was told likely would not need intervention until approx age 48. 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 Informed Consent: The patient's anesthetic plan and its attendant risks and benefits were discussed with the patient/family/POA. Questions were solicited and answers provided to the satisfaction of the patient/family/POA.
--- NOTE | 2024-02-28 07:14 | WPDHPUPDATE1 ---
History and Physical Update Update Date/Time: 02/28/24 07:14 History and Physical has been reviewed, including an updated exam of the patient. There are NO changes in the patient's condition. Risks, benefits, and alternatives have been discussed and questions answered. Patient agrees to proceed with procedure.
--- NOTE | 2024-02-28 07:29 | PM.IMHP ---
H&P: HPI History of Present Illness Date/Time: 02/28/24 07:29 Chief Complaint: desire for ureteral identification PMFSH Past Medical History Medical History Anxiety Depression Endometriosis GERD (gastroesophageal reflux disease) Irritable bowel syndrome with constipation Nausea Post traumatic stress disorder (PTSD) Surgical History Surgical History History of bilateral salpingo-oophorectomy Hx of appendectomy Family History Family History Father Depression Anxiety Mother Hypertension Social History Social History Smoking packs per day: 0.5 Smoking cigarettes per day: 10.0 Years smoked: 10 Smoking pack-years: 5.00 Smoking status: Current every day smoker Tobacco type: e-cigarettes/vaping Second hand tobacco smoke exposure: Yes Additional smoking assessment comments: daily vaping Alcohol intake: current Alcohol use details: 1 drink/month Substance use: current Substance use type: marijuana Other substance usage details: Daily user Living arrangements: with family Occupation/Education: occupation Gender identity (if verbalized by the patient): Female Sexual Orientation (if Verbalized by the Patient): Straight or Heterosexual Spiritual care concerns: No Meds Home Medications and Allergies Home Medications Medication Instructions Recorded Confirmed Type desvenlafaxine succinate 50 mg 1 mg PO HS 01/10/24 02/22/24 History tablet,extended release 24 hr Allergies Allergy/AdvReac Type Severity Reaction Status Date / Time codeine AdvReac Severe Nausea and Verified 02/28/24 06:46 Vomiting hydrocodone [From Vicodin] AdvReac Severe Nausea and Verified 02/28/24 06:46 Vomiting Vital Signs Vital Signs - 24 hr 02/28/24 06:48 Temperature 36.4 C Pulse Rate 65 Blood Pressure 104/68 Pulse Oximetry 100 Oxygen Delivery Room Air Exam Narrative: unlabored breathing abdomen soft/nontender Assessment and Plan Assessment and plan (1) Endometriosis: Code(s): N80.9 - Endometriosis, unspecified Status: Acute Plan Plan cystoscopy and bilateral internal/external ureteral stent insertion for identification. Risks/benefits/alternatives reviewed
--- NOTE | 2024-02-28 07:30 | WPDHPUPDATE1 ---
History and Physical Update Update Date/Time: 02/28/24 07:30 History and Physical has been reviewed, including an updated exam of the patient. There are NO changes in the patient's condition. Risks, benefits, and alternatives have been discussed and questions answered. Patient agrees to proceed with procedure.
[2024-02-28] MEDS: ceFAZolin 2 GM/D5W 50 ML 2 GM/50 ML BAG IVPB (07:37)
--- NOTE | 2024-02-28 08:15 | W.PM.PROC2 ---
Procedure Note - Detailed Date of Procedure 02/28/24 Pre-op Diagnosis Desire for ureteral identification Post-op Diagnosis Same Procedure Performed Cystoscopy, bilateral internal/external ureteral stent insertion, retrograde pyelogram Surgeon Reyna James MD Anesthesia General Description of Procedure Informed consent obtained. Patient taken to operating room. She was given preoperative IV antibiotics. She was induced anesthesia. She was prepped and draped in normal sterile fashion in dorsal lithotomy position. A 22 F cystoscope was inserted through the urethra into bladder. Special bladder revealed no mucosal abnormalities. Scanned the left ureteral orifice with a wire and then advanced the lighted stent sheath over the wire. Retrograde pyelogram was performed confirming appropriate positioning. The identical procedure was performed contralateral side. Sixteen F Smart catheter was inserted and stent sheaths were secured to the Smart catheter. The light fiber was inserted. The case was turned over to spinning lathe operator hydraulic. Stents should be removed at conclusion procedure. Complications No immediate complications Condition Stable
[2024-02-28] MEDS: ceFAZolin SODIUM 1 GM VIAL (08:40)
--- NOTE | 2024-02-28 09:57 | W.PM.PROC2 ---
Procedure Note - Detailed Date of Procedure 02/28/24 Pre-op Diagnosis pelvic congestion syndrome Post-op Diagnosis Same Procedure Performed total laparoscopic hysterectomy, left fimbriectomy Surgeon Yoel Gramajo MD Anesthesia General Indications Pelvic pain Findings distal fallopian tube/fimbria was present on the left side. , enlarged uterus, mildly enlarged. Normal-appearing ovaries. Description of Procedure This patient was taken to the operating room. She was prepped and draped in the dorsal lithotomy position after induction of general anesthesia. The uterine manipulator and Cathy cup were placed. This was done with a speculum and tenaculum. The speculum was placed. The cervix was grasped with a tenaculum. The stay sutures were placed at 3 and 9:00 a.m.. The stay sutures of 0 Vicryl were brought through the appropriately sized Cathy cup. The tip of the LUIZ manipulator was placed in the intrauterine cavity. The cup was slid into place around the cervix and into the fornices. It was locked into place. The sutures were then wrapped around the handle and tied under tension. A 5 mm skin incision was made in the left upper quadrant the abdomen. A 5 mm trocar was inserted into the intrauterine cavity under direct visualization of the scope. Pneumoperitoneum was achieved. A left lower quadrant 11 mm incision was made with scalpel. An 11 mm trocar was inserted into the anterior abdominal cavity under direct visualization the scope. A 5 mm infraumbilical incision was made with a scalpel and a 5 mm trocar was inserted the intra-abdominal cavity under direct visualization of the scope. Bilateral ureteral lysis was performed. This was done from the pelvic brim down to the uterine artery. This was done with careful dissection using sharp and blunt dissection. In a stepwise fashion along the lateral aspects of the uterus the Suspensory ligament of the ovary, round ligament and broad ligaments were cauterized transected down to the level of the uterine arteries. A bladder flap was created in the bladder was moved distally to the end of the cervix and over the Cathy cup. The bilateral uterine arteries were cauterized and transected. Colpotomy was then performed. In a circumferential fashion the vagina was transected using unipolar cautery. The incision was made down on the Cathy cup. when the colpotomy was completed, the uterus and cervix were taken out through the vagina. A pneumo occluder was placed in the vagina. Ovarian fimbria appeared present on the left side. It was adherent to the ovary. It was dissected off the ovary and resected. This was done the sharp and blunt dissection and the LigaSure cautery. The vaginal cuff was closed with a 0 V lock suture in a running fashion. The pelvis was irrigated with copious amounts antibiotic irrigation. The ureters were again examined and found to be intact and flowing freely under the uterine arteries into the bladder. The bladder was intact. It was examined directly. The vagina was irrigated with Betadine solution after removal of the Pneumo occluder. The patient was taken to recovery room. She was stable condition. Sponge lap and needle counts were correct x2. Estimated Blood Loss 150 Drains No Packing No Pathology Yes Complications No immediate complications Condition Stable Disposition PACU
[2024-02-28] MEDS: fentaNYL CITRATE INJ (*CRX) 100 MCG/2 ML VIAL 25 MCG IV PUSH ×6 (10:08→10:57)
[2024-02-28] MEDS: KETOROLAC 30 MG/ML VIAL (*BKC) IV PUSH ×2 (11:35→16:52)
[2024-02-28] MEDS: SIMETHICONE 80 MG TAB.CHEW PO ×2 (11:37→16:08)
[2024-02-28] MEDS: DEXTROSE 5%/0.45% SOD CHL 1,000 ML 125 ML IV CONT (11:39)
--- NOTE | 2024-02-28 12:15 | ADMGEN ---
This patient, Kaya Burch, was admitted to OB 2nd Floor Room 289-00. Patient/family oriented to hospital policies and general routines including ID bracelet, bed and alarms, visiting hours, pain management, procedures, bathroom and other care routines, personal items, smoking policy, room service/diet, and visiting hours. Information on how to activate the Rapid Response Team has been discussed. Patient/Family are encouraged to report perceived risks to care and to ask questions if they do not understand what they are told or what they should do.
[2024-02-28] MEDS: HYDROcodone/acetaminophen (*CRX) 5-325 MG TABLET 1 TAB PO ×3 (12:34→21:40)
[2024-02-28] MEDS: ONDANSETRON INJ 4 MG/2 ML VIAL IV PUSH (12:35)
--- NOTE | 2024-02-28 13:02 | PC.NURSE ---
Patient's urinary catheter removed around 1245. Small bright red bleeding noted running down patient's leg when up walking to the bathroom. Radha pad saturated with small bright red blood. Denies dizziness or light headedness. Vitals at patient's baseline (see charting). Dr. Gramajo notified. Patient and family educated to call nurse if she experiences heavier bleeding, dizziness, light headedness, or gushing sensation of blood. Patient and family verbalize understanding. [ End ]
--- NOTE | 2024-02-28 13:39 | PC.NURSE ---
Dr. Gramajo arrived on unit to assess patient at 1330.
--- NOTE | 2024-02-28 14:50 | PC.NURSE ---
Patient now resting comfortably. No recent bleeding on megan pad noted.
[2024-02-28] MEDS: PROMETHAZINE HCL 25 MG/ML AMPUL 12.5 MG IV PUSH (16:45)
[2024-02-28] MEDS: DESVENLAFAXINE SUCCINATE 50 MG TAB.ER.24H PO (21:40)
[2024-02-29 01:30] VITALS: BP 115/69; PULSE 51; RESP 14; TEMP 37; O2SAT 98
[2024-02-29] MEDS: KETOROLAC 30 MG/ML VIAL (*BKC) IV PUSH (02:26)
[2024-02-29 04:46] VITALS: BP 122/72; PULSE 54; RESP 16; TEMP 36.9; O2SAT 97
[2024-02-29] MEDS: ONDANSETRON INJ 4 MG/2 ML VIAL IV PUSH (05:39)
[2024-02-29] MEDS: HYDROcodone/acetaminophen (*CRX) 5-325 MG TABLET 1 TAB PO (07:11)
[2024-02-29] MEDS: SIMETHICONE 80 MG TAB.CHEW PO (07:12)
--- NOTE | 2024-02-29 07:50 | PM.GYNPNOP ---
INTERIOR DESIGN PROFESSOR - A/P Postoperative Procedures: Procedures Operation Date: 02/28/24 07:30 Actual Procedure Side Surgeon p Total Laparoscopic Hysterectomy with Removal Remement Left Fallopian Tube Not Applicable Yoel Gramajo MD s Bilateral Stent Placement for Abdominal Surgery Bilateral Reyna James MD Postoperative day: 1 Postoperative status: doing well Postoperative plan: see orders Time Spent With Patient Time: Total time spent is greater than 50% in coordination of care (as documented) at patient's floor/unit and/or counseling patient: Time with patient: less than 15 minutes INTERIOR DESIGN PROFESSOR- PN:Subj Post-Op Subjective Date/time seen: 02/29/24 07:50 Subjective: patient reports feeling better, patient has no complaints and pain is well controlled Exam Const: General: healthy appearing, comfortable and no acute distress Resp: Auscultation: clear to auscultation bilaterally, no rales, no rhonchi and no wheezes Cardio: Rate: regular rate Heart sounds: no click, no murmurs and no rubs GI: Inspection: non-distended Auscultation: normal bowel sounds Extrem: General: normal to inspection, no pedal edema and no calf tenderness INTERIOR DESIGN PROFESSOR - PN: Obj Data Vital Signs Vital Signs: Vital Signs - 24 hr 02/28/24 09:51 02/28/24 10:00 02/28/24 10:15 Temperature 97.4 F L Pulse Rate 77 51 L 44 L Respiratory Rate 14 17 16 Blood Pressure 115/93 H 139/84 156/78 H Pulse Oximetry 100 100 100 Oxygen Delivery Simple Face Mask Simple Face Mask Room Air Oxygen Flow Rate 10 10 02/28/24 10:30 02/28/24 10:45 02/28/24 10:51 Temperature Pulse Rate 57 L 71 70 Respiratory Rate 15 20 16 Blood Pressure 147/78 H 147/80 H 145/86 H Pulse Oximetry 98 96 97 Oxygen Delivery Room Air Room Air Room Air Oxygen Flow Rate 02/28/24 11:15 02/28/24 12:55 02/28/24 11:10 Temperature 97.9 F Pulse Rate 50 L 74 Respiratory Rate 16 Blood Pressure 139/84 158/85 H Pulse Oximetry 100 Oxygen Delivery Room Air Oxygen Flow Rate 02/28/24 16:00 02/28/24 16:00 Temperature 98.3 F Pulse Rate 50 L Respiratory Rate 16 Blood Pressure 125/79 Pulse Oximetry 100 Oxygen Delivery Room Air Oxygen Flow Rate Intake/Output Intake/Output: Intake & Output 02/26/24 02/27/24 02/28/24 02/29/24 23:59 23:59 23:59 23:59 Intake Total 1350 Output Total 520 Balance 830 Meds/Results Medications: Active Medications Generic Name Dose Route Start Last Admin Trade Name Freq PRN Reason Stop Dose Admin Hydrocodone Bitart/Acetaminophen 1 tab 02/28/24 10:59 02/29/24 07:11 Hydrocodone/Acetaminophen (*Crx) 5-325 Mg Tablet PO 1 tab Q3H PRN Administration Pain Rated 5 or Less Hydrocodone Bitart/Acetaminophen 1 tab 02/28/24 10:59 Hydrocodone/Acetaminophen (*Crx) 10-325 Mg Tablet PO Q3H PRN Pain Rated 6 or Greater Desvenlafaxine Succinate 50 mg 02/28/24 21:00 02/28/24 21:40 Desvenlafaxine Succinate 50 Mg Tab.Er.24h PO 03/29/24 20:59 50 mg HS KENNETH Administration Dextrose/Sodium Chloride 1,000 mls @ 125 mls/hr 02/28/24 10:59 02/29/24 06:33 Dextrose 5% Sodium Chloride 0.45% IV CONT Not Given .Q8H KENNETH Ibuprofen 600 mg 02/28/24 10:59 Ibuprofen 600 Mg Tablet PO Q6H PRN Cramping Ketorolac Tromethamine 30 mg 02/28/24 10:59 02/29/24 02:26 Ketorolac 30 Mg/Ml Vial (*Bkc) IV PUSH 03/04/24 10:58 30 mg Q6H PRN Administration Pain Rated 4-6 Naloxone HCl 0.1 mg 02/28/24 10:59 Naloxone Hcl 0.4 Mg/Ml Vial IV PUSH Q2M PRN Respiratory rate less than 10 Ondansetron HCl 4 mg 02/28/24 10:59 02/29/24 05:39 Ondansetron Inj 4 Mg/2 Ml Vial IV PUSH 4 mg Q6H PRN Administration Nausea And Vomiting Simethicone 80 mg 02/28/24 12:00 02/29/24 07:12 Simethicone 80 Mg Tab.Chew PO 80 mg TIDWM KENNETH Administration Radiology Results: ITS Impressions Retrograde Pyelogram 02/28/24 09:22 IMPRESSION: 1. Fluoroscopy utilized during
[2024-02-29 08:25] VITALS: BP 109/74; PULSE 62; RESP 18; TEMP 36.9; O2SAT 100
== END 2024-02-29 09:40 | disposition home or self-care (01) ==
LOC: ANHSURGERY 06:27 → ANHOB2 11:28
PROVIDERS: Urology; Visit Provider Obstetrics & Gynecology
PROC: 0UT9FZZ Resection of Uterus, Via Natural or Artificial Opening With Percutaneous Endoscopic Assistance (ICD-10-PCS; CPT 58570; principal; 2024-02-28 07:30)
PROC: (CPT 52005; 2024-02-28 07:30)
DX: N94.89 Other specified conditions associated with female genital organs and menstrual cycle (principal); K21.9 Gastro-esophageal reflux disease without esophagitis; F41.9 Anxiety disorder, unspecified; F32.A Depression, unspecified; K58.1 Irritable bowel syndrome with constipation; G47.00 Insomnia, unspecified; F17.290 Nicotine dependence, other tobacco product, uncomplicated; F43.10 Post-traumatic stress disorder, unspecified; Z98.890 Other specified postprocedural states; G89.18 Other acute postprocedural pain; Z98.51 Tubal ligation status
CPT/HCPCS: 52005; 58570; 36415; 74420; 86850; 86900; 86901; 88307; 99199; A9270; C1758; C1769; J0690; J1100; J1170; J1200; J1885; J2250; J2405; J2550; J2704; J3010; J7030; J7120; Q9968

== ENCOUNTER 2024-05-31 18:13 | Emergency (ER) | payer OTHER, MEDICAID, SELFPAY ==
--- NOTE | 2024-05-31 18:24 | ED_ITS ---
HPI - URI/Sore Throat General Chief Complaint: Upper Respiratory Infection Stated Complaint: Congestion/Shortness of Breath/Chest Tightness Time Seen by Provider: 05/31/24 18:24 Source: patient Mode of arrival: ambulatory Limitations: no limitations History of Present Illness HPI Narrative: 29 y/o female presented for c/o hoarse voice, cough and chest tightness, and body aches. Onset today. States she has had runny nose and 'mild cold' for one week. Taking Dayquil and allergy meds. denies sob, wheezing, n/v/d/f/c. Related Data Home Medications ?Medication ?Instructions ?Recorded ?Confirmed ?Last Taken ?Type desvenlafaxine succinate 50 mg 1 mg PO HS 01/10/24 05/31/24 01/16/24 History tablet,extended release 24 hr mirtazapine 15 mg tablet mg 05/31/24 Unknown History Allergies Allergy/AdvReac Type Severity Reaction Status Date / Time codeine AdvReac Severe Nausea and Verified 02/28/24 09:59 Vomiting hydrocodone (From Vicodin) AdvReac Severe Nausea and Verified 02/28/24 09:59 Vomiting Review of Systems Review of Systems: per HPI All systems reviewed & are unremarkable except as noted in HPI and below PMFSH Past Medical History Medical History Irritable bowel syndrome with constipation GERD (gastroesophageal reflux disease) Nausea Endometriosis Post traumatic stress disorder (PTSD) Anxiety Depression Surgical History Surgical History Hx of appendectomy History of bilateral salpingo-oophorectomy Family History Family History Father Depression Anxiety Mother Hypertension Social History Social History Smoking packs per day: 0.5 Smoking cigarettes per day: 10.0 Years smoked: 10 Smoking pack-years: 5.00 Smoking status: Current every day smoker Tobacco type: e-cigarettes/vaping Second hand tobacco smoke exposure: Yes Additional smoking assessment comments: daily vaping Alcohol intake: current Alcohol use details: 1 drink/month Substance use: current Substance use type: marijuana Other substance usage details: Daily user Living arrangements: with family Occupation/Education: occupation Gender identity (if verbalized by the patient): Female Sexual Orientation (if Verbalized by the Patient): Straight or Heterosexual Spiritual care concerns: No Comments At time of signature, I have reviewed and agree with nursing past medical, surgical, social and family history unless otherwise noted. Please see nursing chart for further information. There is no relevant family history pertinent to the presenting complaint Exam Narrative: GENERAL: mildly ill-appearing, in no acute distress. EYES: EOMI. No redness or drainage. Conjunctivae normal. ENT: Mucous membranes pink and moist. Nasal congestion. TMs normal bilaterally. Hoarse voice. Throat normal. Uvula midline. NECK: Normal AROM. Supple. CHEST: No respiratory distress. Lungs clear to all gonzales. HEART: Regular rate and rhythm. No murmur appreciated. SKIN: Warm, dry, no rash. Capillary refill normal. Normal skin turgor. NEURO: Alert and oriented x3. Gait steady. PSYCH: Normal affect. Course Course Emergency Course: Patient is aware of diagnosis, understands and agrees to treatment plan. Anticipatory guidance given. Patient agrees to follow-up as directed and is aware of reasons to seek care at the emergency department. Portions of this record may have been created with voice recognition software Level of Care: Express Care Visit MDM - URI/Sore Throat MDM Narrative Medical decision making narrative: Discussed physical exam findings. Advised supportive measures and signs/symptoms to go to the ER. Pt is appropriate for outpt treatment and f/u. Differential Diagnosis Differential diagnosis: Likely upper respiratory infection, otitis media, sinusitis, viral infection, bronchitis, influenza, pharyngitis and other Discharge Plan Discharge Clinical Impression: Bronchitis Patient Disposition: Home, Self-Care Condition: Stable Instructions: Antibiotic Form, Acute Bronchitis (ED) Additional Instructions: Acute bronchitis can be contagious because it is usually caused by infection with a virus or bacteria. It is usually for a few days but you can be contagious for up to one week. Avoid crowds until you do not have a fever and symptoms are improved Take medication as directed Albuterol inhaler as needed for shortness of breath/wheezing Recommend Flonase spray and Zyrtec (or Claritin/Bea) over the counter Cough syrup may cause drowsiness; avoid driving or take it at night time. Tylenol 1000mg every 8 hours as needed for pain Symptomatic treatment includes: rest, fluids, and increase humidity of the air at home. If no improvement you can start the antibiotic Follow up with your primary care provider as needed in 1 week Go to the ER for worsening symptoms or concerns Patient Language: Greek Prescriptions: New azithromycin [Zithromax Z-David] 250 mg tablet See Rx Instructions .ROUTE .COMPLEX Qty: 6 0RF Rx Instructions: For 250 mg dose pack: take 500 mg today (day 1), then 250 mg for 4 days (days 2-5) methylprednisolone [Medrol (Advid)] 4 mg tablets,dose pack See Rx Instructions .ROUTE .COMPLEX Qty: 21 0RF Rx Instructions: orally per package directions albuterol sulfate 90 mcg/actuation HFA aerosol inhaler 2 inh inhalation QID PRN (Reason: shortness of breath or wheezing) Qty: 8.5 0RF No Action mirtazapine 15 mg tablet desvenlafaxine succinate 50 mg tablet extended release 24 hr 1 mg PO HS oxycodone-acetaminophen 5-325 mg tablet 1 tablet PO Q4H PRN (Reason: pain) Qty: 25 0RF Follow-up/Referrals: PHYSICIAN,CREATIVE INTERN [Primary Care Provider] -
[2024-05-31 18:28] VITALS: BP 135/77; PULSE 87; RESP 18; TEMP 37.3; O2SAT 100
== END 2024-05-31 18:41 | disposition home or self-care (01) ==
PROVIDERS: Emergency Provider Nurse Practitioner Family
DX: J40 Bronchitis, not specified as acute or chronic (principal); F17.210 Nicotine dependence, cigarettes, uncomplicated
CPT/HCPCS: 99213; G0463